=== PATIENT | male | born 1935 | race Caucasian/White ===

== ENCOUNTER 2016-07-21 07:10 | Day surgery (SDC) | payer MEDICARE, BC ==
--- NOTE | 2016-07-13 19:42 | HP ---
HISTORY AND PHYSICAL: DATE OF ADMISSION: 07/21/16 He will be in coming into [facility] on 07/21/16 for right knee arthroscopic surgery. CHIEF COMPLAINT: Right knee pain, giving away, and some walking. HISTORY OF PRESENT ILLNESS: This 80-year-old man has had problems with his knee over several months and it got worse recently with the above-noted symptoms and he has arthritis, but he also has signs and symptoms nonconsistent with meniscal tearing or cartilage tearing or lose body, so we recommended the arthroscopic surgery. PAST MEDICAL HISTORY: No history of heart attack. He has not had chest pain. He does stairs using a railing. No cancers. No bleeding tendencies. No prior abdominal surgery. MEDICATIONS: Daily meds include: 1. Lisinopril/hydrochlorothiazide 20/12.5 one a day. 2. Simvastatin 40 mg one a day. 3. Allopurinol 100 mg one a day. ALLERGIES: No allergies to drugs. PHYSICAL EXAMINATION GENERAL: A little overweight, well-nourished, well-developed, not acutely distressed. VITAL SIGNS: The patient is 72 inches in height and 232 pounds, blood pressure 122/72, pulse is 70, temp 96.8, respirations are 18, and pulse 56. HEENT: Head is NC/AT. LUNGS: Clear bilaterally. HEART: Regular. S1, S2 normal. No murmurs or gallops. ABDOMEN: Round, soft, nontender. There is no organomegaly. NEUROLOGIC: Cranial nerves are grossly intact. MUSCULOSKELETAL: He has a slight limp on the right. The right knee has an effusion with extension -2, flexion 95 degrees with pain, the right knee is tender on the medial joint line. MCL and LCL are stable. Barrie and posterior drawer are normal. The knee is nontender anterolaterally, posteriorly. The foot pulses are intact. NEUROLOGICAL: Cranial nerves are grossly intact. IMPRESSION: Right knee medial meniscal tear. PLAN: Right knee arthroscopic surgery. Goals, risks, and complications have been reviewed with him. Guarantees have not been made and his questions were answered. [id number]/CPS #: [id number] MTDD
[~2016-07-21 07:10] MED LIST: Buffered Lidocaine 1% SYR 3ML* 3 ML/SYR SYRINGE INTRADERM ONE
[2016-07-21] MEDS ORDERED: ceFAZolin 2 GM PREMIX (*) 2 GM/50 ML BAG IVPB ONE (07:52)
[2016-07-21] MEDS ORDERED: Bupivacaine 0.5% W/EPI SDV* 30 ML VIAL ONE (08:49)
[2016-07-21] MEDS ORDERED: Midazolam* 1 MG/ML 5 ML VIAL (5 MG) ONE (09:10)
[2016-07-21] MEDS ORDERED: fentaNYL* 50 MCG/ML 2 ML VIAL (100 MCG VIAL) ONE (09:15)
[2016-07-21] MEDS ORDERED: Propofol* 10 MG/ML 20 ML BTL IV PUSH ONE (09:15)
[2016-07-21] MEDS ORDERED: Dexamethasone IV* 4 MG/ML 1 ML (4 MG) ONE (09:40)
[2016-07-21] MEDS ORDERED: Ketorolac INJ* 30 MG/ML 1 ML VIAL ONE (09:40)
[2016-07-21] MEDS ORDERED: Ondansetron INJ* 2 MG/ML VIAL ONE (09:59)
[2016-07-21] MEDS ORDERED: methylPREDNISolone ACETATE 80* 80 MG/ML 1 ML VIAL ONE (10:06)
[2016-07-21] MEDS ORDERED: Ondansetron INJ* 2 MG/ML VIAL IV PRN (10:20)
[2016-07-21] MEDS ORDERED: oxyCODONE TAB* 5 MG TAB PO PRN (10:20)
[2016-07-21] MEDS ORDERED: HYDROcodone/ACETAMIN 5-325 MG* 1 TAB PO PRN (10:20)
[2016-07-21] MEDS ORDERED: fentaNYL* 50 MCG/ML 2 ML VIAL (100 MCG VIAL) IV PRN (10:20)
[2016-07-21] MEDS ORDERED: HYDROmorphone INJ* 1 MG/ML CARPUJECT SYRINGE IV PRN (10:20)
[2016-07-21] MEDS ORDERED: DiMENhydriNATE IV* 50 MG/ML VIAL IV PUSH PRN (10:20)
[2016-07-21 11:37] VITALS: BP 123/78
--- NOTE | 2016-07-21 23:49 | OP ---
DATE OF OPERATION: 07/21/16 - [facility] DATE OF : 39 SURGICAL CARE: Right knee. SURGEON: Wilfrido Aguiar MD STITCHING MACHINE OPERATOR: INES Rachel ANESTHESIOLOGIST: Albaro Manley MD ANESTHESIA: LMA, general. 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 POST-OP DIAGNOSIS: Right medial meniscal tear and medial arthritis. The medial meniscal tear was large and completely displaced and locking up the medial joint. OPERATIVE PROCEDURE: Right knee arthroscopic partial medial meniscectomy, chondroplasty of the lateral femoral condyle. COMPLICATIONS: There were no complications. DRAINS: There were no drains. TOURNIQUET: Tourniquet control was utilized on the right leg. BLOOD LOSS: 50 mL. REPLACEMENT: Crystalloid fluids. INDICATION: Severe medial knee pain with locking and marked limp and difficulty weightbearing, persistent. DESCRIPTION OF PROCEDURE: The patient was brought to the operating room and placed on the operating room table in a supine position. Following the administration of the anesthetic, the right proximal thigh was wrapped with a tourniquet and the right leg was prepped preliminarily at the knee with chlorhexidine and then given a formal prep from the tourniquet to the ankle with ChloraPrep. After prepping, draping and sealing off, we did our universal protocol time-out confirming Aaron Montero and a plan for right knee arthroscopic surgery. We all agreed and we proceeded. The right leg, ankle, and foot had also been completely draped in an impermeable drape with a Vi- Drape wrapped around the calf at the top of that for seal-off. After the protocol time-out was completed, the leg was exsanguinated, the tourniquet elevated to 275. The knee was readied for arthroscopy with the arthroscope lateral to patellar tendon. Probe and operating instruments medial to patellar tendon and an in-flow catheter superomedial to the patella. The cartilage of the patellofemoral joint was largely cobblestone and there was no large looser fragments. The medial and lateral gutters were clear except for minimal synovitis. The medial meniscus was torn nearly completely. The posterior part of it was flapped anteriorly, completely locking the medial joint. The lateral femoral condyle, lateral meniscus, lateral tibial plateau, a lot of wear and tear, the lateral femoral condyle had a flap that was 1.5 cm in size and loose and this was excised. I did not think any further surgical care was necessary in the lateral compartment. Once the torn medial meniscus was excised and the remaining medial meniscus was smooth mid and anteriorly, and posteriorly the rough edge was basketed. A tiny amount of chondroplasty was done on the medial femoral condyle as well for loose cartilage. Once the surgical care was complete, the final photograph was obtained. The tourniquet was deflated, the knee was irrigated with another 6 L of saline irrigation solution, then emptied, then instilled with Marcaine 0.5% with epinephrine 28 to 30 mL and 80 mg of Depo-Medrol. This was well tolerated. The knee arthroscopy site was closed with interrupted 3-0 Surgipro and a dressing was applied after washing and drying with Betadine soaked release , sterile gauze, sterile Webril, cryotherapy cuff, ABD pads and then a 6-inch Spenser bandage loosely applied. The patient was returned to the recovery room in stable and satisfactory condition having tolerated the procedure very well. [id number]/CPS #: [id number] AILYN
== END 2016-07-21 12:06 | disposition home or self-care (01) ==
LOC: OR 07:10
PROVIDERS: ATTEND Orthopaedic Surgery
DX: M23.231 Derangement of other medial meniscus due to old tear or injury, right knee (principal); M17.11 Unilateral primary osteoarthritis, right knee; M25.461 Effusion, right knee; I10 Essential (primary) hypertension
CPT/HCPCS: 88304; J0690; J1040; J1100; J1885; J2250; J2405; J2704; J3010

== ENCOUNTER → 2019-03-23 15:56 | Day surgery (SDC) | payer MEDICARE, OTHER, BC ==
[~2019-03-23 15:56] MED LIST changes: -Buffered Lidocaine 1% SYR 3ML* 3 ML/SYR SYRINGE INTRADERM ONE; +Buffered Lidocaine 1% SYRIN* 1 ML/SYRINGE INTRADERM ONE; +Bupivacaine 0.25% SDV PF* 10 ML VIAL INJ ONE; +Dexamethasone IV* 4 MG/ML 1 ML (4 MG) ONE; +Famotidine IV* 10 MG/ML 2 ML (20 mg) IV ONE; +Famotidine IV* 10 MG/ML 2 ML (20 mg) ONE; +KETAMINE HCL* 50 MG/ML 10 ML VIAL ONE; +Lactated Ringers 1000 ML Bag* 1,000 ML IV SCH; +Lidocaine 1% w EPI 1:100,000* MDV 20 ML VIAL ONE; +Lidocaine 2% PF * 5 ML VIAL ONE; +Midazolam* 1 MG/ML 10 ML VIAL (10 MG) ONE; +Naloxone* 0.4 MG/ML 1 ML VIAL IV PRN; +Ondansetron INJ* 2 MG/ML VIAL IV PRN; +Ondansetron INJ* 2 MG/ML VIAL ONE; +Propofol* 10 MG/ML 20 ML BTL ONE; +ceFAZolin 2 GM PREMIX in ORs 2 GM/50 ML BAG ONE; +fentaNYL* 50 MCG/ML 2 ML VIAL (100 MCG VIAL) IV PRN; +fentaNYL* 50 MCG/ML 2 ML VIAL (100 MCG VIAL) ONE; +oxyCODONE/Acetamin 5/325 MG* TAB PO PRN
[2019-03-23 20:27] VITALS: BP 117/80
== END | disposition home or self-care (01) ==
LOC: OR 15:56
PROVIDERS: ATTEND Plastic Surgery
DX: D03.62 Melanoma in situ of left upper limb, including shoulder (principal); I10 Essential (primary) hypertension; M19.90 Unspecified osteoarthritis, unspecified site; E78.5 Hyperlipidemia, unspecified; M10.9 Gout, unspecified; Z85.820 Personal history of malignant melanoma of skin
CPT/HCPCS: 88305; J0690; J1100; J2250; J2405; J2704; J3010; J3490

== ENCOUNTER 2023-09-22 09:07 | Inpatient (IN) ==
[2023-09-22 11:51] LABS: Hematocrit 28.2 % (38-53); Hemoglobin 10.1 g/dL (13.2-16.3); Mean Corpuscular Hemoglobin 40.2 pg (27-33); Mean Corpuscular Hgb Conc 35.9 g/dL (31-36); Mean Corpuscular Volume 112.3 fL (80-97); Red Blood Count 2.51 10^6/uL (4.06-5.63); Red Cell Distribution Width 13.1 % (12-17); White Blood Count 8.1 10^3/uL (3.6-10.2)
[2023-09-22 11:54] LABS: Activated Partial Thrombo Time 30.3 seconds (26.0-38.0); INR 1.16 (0.83-1.13)
[2023-09-22 12:27] LABS: Albumin 4.2 g/dL (3.2-5.2); Albumin/Globulin Ratio 2.3 (1-3); Calcium 8.5 mg/dL (8.6-10.3); Creatinine, Serum 9.12 mg/dL (0.67-1.17); Direct Bilirubin 0.1 mg/dL (0.03-0.18); Globulin 1.8 g/dL (2-4); Indirect Bilirubin 0.5 mg/dL (0.3-1.0); Total Bilirubin 0.6 mg/dL (0.2-1.0); eGFR CKD-EPI 5.2 (>60)
[2023-09-22] MEDS: NS 0.9% 1000 ml BAG 1,000 ML IV ONE (12:39)
[2023-09-22 12:40] LABS: Mean Platelet Volume 8.6 fL (7.5-11.2); Platelet Count 59 10^3/uL (150-450)
[2023-09-22 12:40] LABS: Urine Appearance Clear; Urine Bilirubin Negative (Negative); Urine Blood 1+ (Negative); Urine Color Light-Yellow; Urine Glucose Negative (Negative); Urine Ketones Negative (Negative); Urine Nitrite Negative (Negative); Urine Protein 1+ (>=30 mg/dL) (Negative); Urine Specific Gravity 1.014 (1.002-1.030); Urine Urobilinogen Negative (Negative); Urine pH 5.5 (5.0-8.0)
[2023-09-22 12:48] LABS: Urine Bacteria 1+ /HPF (Absent); Urine Red Blood Cell 1+(3-5/hpf) /HPF (0-Trace); Urine Squamous Epithelial Cell Present /HPF (Absent); Urine White Blood Cell 3+(>20/hpf) /HPF (0-Trace)
[2023-09-22 12:54] LABS: High Sensitivity Troponin 1 Hr 17 pg/mL (<20)
[2023-09-22 13:16] LABS: ABS Neutrophils 4.7 10^3/ul (1.5-7.6); Macrocytosis 1+
[2023-09-22 13:17] LABS: ABS Eosinophils 0.1 10^3/ul (0.0-0.5); ABS Lymphocytes 2.7 10^3/ul (1.0-4.8); ABS Monocytes 0.7 10^3/ul (0.0-1.1)
[2023-09-22] MEDS: cefTRIAXone 1 gm/50 mL D5W 1 GM/50 ML BAG IV ONE (13:52)
[2023-09-22 14:08] LABS: CRP High Sensitivity 1.36 mg/L (<2.00); Uric Acid 8.3 mg/dL (4.4-7.6)
[2023-09-22 15:24] LABS: Magnesium 1.4 mg/dL (1.9-2.7); Phosphorus 6.4 mg/dL (2.5-5.0)
[2023-09-22 15:45] LABS: Ferritin 997.9 ng/mL (24-336)
[2023-09-22 15:50] LABS: Folate 5.54 ng/mL (5.90-24.80)
[2023-09-22] MEDS: Magnesium Sulfate 2 gm BAG 2 GM/50 ML BAG IVPB ONE ×2 (16:35→23:11)
[2023-09-22 17:01] LABS: TSH Ultra Thyroid Stim Horm 1.01 mcIU/mL (0.34-5.60)
[2023-09-22] MEDS: NS 0.9% IV ONE (17:15)
[2023-09-22 17:22] LABS: C Reactive Protein 1.52 mg/L (<8.01)
[2023-09-22] MEDS ORDERED: NS 0.9% 1000 ml BAG 100 ML IV PRN (20:31)
[2023-09-22] MEDS ORDERED: Heparin 1,000 UNIT/ML 10 ml (10,000 UNITS) CATHLAB/DIALYSIS DIALYSIS PRN (20:31)
[2023-09-22] MEDS ORDERED: Albumin Human 25% 25 GM/100 ML BTL IV PRN (20:31)
[2023-09-22] MEDS ORDERED: NS 0.9% 1000 ml BAG 200 ML IV PRN (20:31)
[2023-09-22 21:49] LABS: Calcium 8.6 mg/dL (8.6-10.3); Creatinine, Serum 8.74 mg/dL (0.67-1.17); Potassium 5.2 mmol/L (3.5-5.0); eGFR CKD-EPI 5.5 (>60)
[2023-09-22] MEDS ORDERED: Ondansetron 4 mg VIAL 2 MG/ML 2 ml VIAL IV PRN (22:17)
[2023-09-22 22:38] LABS: Hepatitis B Surface Ab Not Immune (Immune)
[2023-09-22] MEDS: NS 0.9% 1000 ml BAG 2,000 ML IV ONE (23:04)
[2023-09-22] MEDS: NS 0.45% 1000 ml BAG 1,000 ML IV SCH (23:10)
[2023-09-23 06:38] LABS: Hematocrit 26.2 % (38-53); Hemoglobin 9.2 g/dL (13.2-16.3); Mean Corpuscular Hemoglobin 39.8 pg (27-33); Mean Corpuscular Hgb Conc 35.1 g/dL (31-36); Mean Corpuscular Volume 113.6 fL (80-97); Mean Platelet Volume 8.9 fL (7.5-11.2); Platelet Count 43 10^3/uL (150-450); Red Blood Count 2.31 10^6/uL (4.06-5.63); Red Cell Distribution Width 13.5 % (12-17); White Blood Count 8.1 10^3/uL (3.6-10.2)
[2023-09-23 06:54] LABS: Calcium 8.3 mg/dL (8.6-10.3); Creatinine, Serum 8.11 mg/dL (0.67-1.17); Magnesium 2.1 mg/dL (1.9-2.7); Potassium 4.7 mmol/L (3.5-5.0)
[2023-09-23 07:34] LABS: Macrocytosis 1+
[2023-09-23 10:54] LABS: Hepatitis B Surface Antigen Nonreactive (Nonreactive)
[2023-09-23 12:07] LABS: ABS Lymphocytes 2.8 10^3/ul (1.0-4.8); ABS Neutrophils 4.7 10^3/ul (1.5-7.6)
[2023-09-23 12:07] LABS: Activated Partial Thrombo Time 30.1 seconds (26.0-38.0); INR 1.11 (0.83-1.13)
[2023-09-23 12:08] LABS: ABS Eosinophils 0.2 10^3/ul (0.0-0.5); ABS Monocytes 0.4 10^3/ul (0.0-1.1)
[2023-09-23] MEDS: D5W IV SCH ×2 (12:44→13:10)
[2023-09-23] MEDS: 1/2 NS IV SCH ×2 (12:44→13:10)
[2023-09-23] MEDS: SODIUM BICARB IV SCH ×2 (12:44→13:10)
[2023-09-23] MEDS: cefTRIAXone 1 gm/50 mL D5W 1 GM/50 ML BAG IV SCH (14:35)
[2023-09-23] MEDS: Lidocaine 2% 10 ML VIAL INJ ONE (15:06)
[2023-09-23] MEDS: Lidocaine 2% PF 5 ML VIAL INJ ONE (15:06)
[2023-09-23 16:29] LABS: HIV 4th Generation Nonreactive (Nonreactive)
[2023-09-23 18:00] LABS: Corrected Retic Count 0.2 % (0.5-1.5); Hematocrit for Retic CNT 26.2 % (38-53); RBC Retic Count 2.32 10^6/ul (4.06-5.63)
[2023-09-23 19:23] LABS: Creatinine, Serum 7.49 mg/dL (0.67-1.17); Magnesium 1.8 mg/dL (1.9-2.7); Phosphorus 5.3 mg/dL (2.5-5.0); eGFR CKD-EPI 6.6 (>60)
[2023-09-23 20:33] LABS: Hematocrit 24.9 % (38-53); Hemoglobin 8.8 g/dL (13.2-16.3); Mean Corpuscular Hemoglobin 39.8 pg (27-33); Mean Corpuscular Hgb Conc 35.6 g/dL (31-36); Mean Platelet Volume 7.9 fL (7.5-11.2); Platelet Count 55 10^3/uL (150-450); RBC Morphology Normal (Normal); Red Blood Count 2.22 10^6/uL (4.06-5.63); Red Cell Distribution Width 13.4 % (12-17); White Blood Count 6.6 10^3/uL (3.6-10.2)
[2023-09-23] MEDS: Sodium Bicarb 8.4% Vial 50 ML 150 MEQ in D5W 1000 ml BAG 850 ML IV ONE (21:46)
[2023-09-24 06:22] LABS: Hematocrit 24.2 % (38-53); Hemoglobin 8.7 g/dL (13.2-16.3); Mean Corpuscular Hemoglobin 39.7 pg (27-33); Mean Corpuscular Hgb Conc 35.9 g/dL (31-36); Mean Corpuscular Volume 110.7 fL (80-97); Red Blood Count 2.18 10^6/uL (4.06-5.63); Red Cell Distribution Width 13.1 % (12-17); White Blood Count 7.6 10^3/uL (3.6-10.2)
[2023-09-24 06:42] LABS: Calcium 8.1 mg/dL (8.6-10.3); Creatinine, Serum 7.16 mg/dL (0.67-1.17); Magnesium 1.7 mg/dL (1.9-2.7); Phosphorus 5.1 mg/dL (2.5-5.0); Potassium 3.9 mmol/L (3.5-5.0); eGFR CKD-EPI 6.9 (>60)
[2023-09-24 08:17] LABS: ABS Basophils 0.1 10^3/uL (0.0-0.1); ABS Eosinophils 0.1 10^3/uL (0.0-0.5); ABS Lymphocytes 1.7 10^3/uL (1.0-4.8); ABS Monocytes 1.1 10^3/uL (0.0-1.1); ABS Neutrophils 4.6 10^3/uL (1.5-7.6); Eosinophil % 0.8 %; Lymphocyte % 22.3 %; Macrocytosis 1+; Mean Platelet Volume 8.2 fL (7.5-11.2); Platelet Count 54 10^3/uL (150-450)
[2023-09-24] MEDS: Magnesium Sulfate IV 1GM/100ML 1 GM/100 ML BAG IV ONE (08:21)
[2023-09-24] MEDS: Magnesium Sulfate 2 gm BAG 2 GM/50 ML BAG IVPB ONE (09:58)
[2023-09-24] MEDS: Potassium Chlor 20 meq TAB.ER PO ONE (11:32)
[2023-09-24 12:43] LABS: Direct Bilirubin 0.2 mg/dL (0.03-0.18); Indirect Bilirubin 0.4 mg/dL (0.3-1.0); Total Bilirubin 0.6 mg/dL (0.2-1.0)
[2023-09-24] MEDS: 1/2 NS IV SCH ×3 (13:07→14:15)
[2023-09-24] MEDS: D5W IV SCH ×3 (13:07→14:15)
[2023-09-24] MEDS: SODIUM BICARB IV SCH ×3 (13:07→14:15)
[2023-09-24] MEDS ORDERED: Sulfur Hexaflouride MICROSPHR 25 MG VIAL ONE (13:19)
[2023-09-24 20:40] LABS: ADAMTS13 Activity Assay 75 % (>/=70)
[2023-09-24 21:24] LABS: Calcium 8.5 mg/dL (8.6-10.3); Creatinine, Serum 6.85 mg/dL (0.67-1.17); eGFR CKD-EPI 7.3 (>60)
[2023-09-25] MEDS: Sodium Bicarb 8.4% Vial 50 ML 75 MEQ in NS 0.45% 1000 ml BAG 1,000 ML IV SCH (04:08)
[2023-09-25 06:57] LABS: Hematocrit 25.9 % (38-53); Hemoglobin 9.2 g/dL (13.2-16.3); Mean Corpuscular Hemoglobin 39.8 pg (27-33); Mean Corpuscular Hgb Conc 35.6 g/dL (31-36); Mean Corpuscular Volume 111.9 fL (80-97); Mean Platelet Volume 8.6 fL (7.5-11.2); Platelet Count 63 10^3/uL (150-450); Red Blood Count 2.31 10^6/uL (4.06-5.63); Red Cell Distribution Width 13.3 % (12-17); White Blood Count 9.2 10^3/uL (3.6-10.2)
[2023-09-25 07:12] LABS: Calcium 8.5 mg/dL (8.6-10.3); Creatinine, Serum 6.5 mg/dL (0.67-1.17); Phosphorus 4.9 mg/dL (2.5-5.0); eGFR CKD-EPI 7.8 (>60)
[2023-09-25 10:28] LABS: ABS Basophils 0.1 10^3/uL (0.0-0.1); ABS Eosinophils 0.1 10^3/uL (0.0-0.5); ABS Lymphocytes 2.3 10^3/uL (1.0-4.8); ABS Monocytes 1.1 10^3/uL (0.0-1.1); ABS Neutrophils 5.7 10^3/uL (1.5-7.6); ABS Nucleated RBC 0.01 10^3/ul; Eosinophil % 0.8 %; Lymphocyte % 24.8 %; Nucleated Red Blood Cells % 0.1 %/100WBC (0.0-0.8)
[2023-09-25 10:29] LABS: Macrocytosis 2+
[2023-09-26 06:40] LABS: Calcium 8.8 mg/dL (8.6-10.3); Creatinine, Serum 6.02 mg/dL (0.67-1.17); Magnesium 1.8 mg/dL (1.9-2.7); Potassium 4.1 mmol/L (3.5-5.0); eGFR CKD-EPI 8.6 (>60)
[2023-09-26 07:05] LABS: Hematocrit 24.3 % (38-53); Hemoglobin 8.7 g/dL (13.2-16.3); Mean Corpuscular Hemoglobin 39.9 pg (27-33); Mean Corpuscular Hgb Conc 35.8 g/dL (31-36); Mean Corpuscular Volume 111.6 fL (80-97); Platelet Count 61 10^3/uL (150-450); Red Blood Count 2.18 10^6/uL (4.06-5.63); Red Cell Distribution Width 13.2 % (12-17)
[2023-09-26] MEDS: Magnesium Sulfate IV 1GM/100ML 1 GM/100 ML BAG IV ONE (08:50)
[2023-09-26] MEDS: NS 0.9% 1000 ml BAG 1,000 ML IV SCH (10:11)
[2023-09-26] MEDS: Dexamethasone IV 40 MG in NS 0.9% 50 ML 50 ML IVPB SCH (14:05)
[2023-09-26 14:25] LABS: Rheumatoid Factor < 10 IU/mL (<15)
[2023-09-26 15:07] LABS: Hepatitis B Surface Antigen Nonreactive (Nonreactive)
[2023-09-26 15:18] LABS: Anaplasma phagocytophilum Negative (Negative); B. miyamotoi PCR, B Negative (Negative); Babesia divergens/MO-1 Negative (Negative); Babesia ducani Negative (Negative); Ehrlichia chaffeensis Negative (Negative); Ehrlichia ewingii/canis Negative (Negative); Ehrlichia muris eauclairensis Negative (Negative)
[2023-09-26 15:24] LABS: Hepatitis B Surface Ab Not Immune (Immune); Hepatitis C Antibody Negative (Negative)
[2023-09-27] MEDS: NS 0.9% 1000 ml BAG 1,000 ML IV SCH ×2 (01:50→09:55)
[2023-09-27 06:25] LABS: ABS Lymphocytes 1.5 10^3/uL (1.0-4.8); ABS Monocytes 0.3 10^3/uL (0.0-1.1); ABS Neutrophils 5.5 10^3/uL (1.5-7.6); Eosinophil % 0.2 %; Hematocrit 24.4 % (38-53); Hemoglobin 8.7 g/dL (13.2-16.3); Lymphocyte % 20.6 %; Mean Corpuscular Hemoglobin 39.9 pg (27-33); Mean Corpuscular Hgb Conc 35.6 g/dL (31-36); Nucleated Red Blood Cells % 0.1 %/100WBC (0.0-0.8); Platelet Count 59 10^3/uL (150-450); Red Blood Count 2.17 10^6/uL (4.06-5.63); Red Cell Distribution Width 13.2 % (12-17); White Blood Count 7.3 10^3/uL (3.6-10.2)
[2023-09-27 06:49] LABS: Calcium 8.8 mg/dL (8.6-10.3); Creatinine, Serum 5.66 mg/dL (0.67-1.17); Magnesium 1.9 mg/dL (1.9-2.7); Potassium 4.4 mmol/L (3.5-5.0); eGFR CKD-EPI 9.2 (>60)
[2023-09-27] MEDS ORDERED: Dextrose 50% Syringe 50 ml 25 GM/50 ML SYRINGE IV PUSH PRN (07:04)
[2023-09-27] MEDS: Magnesium Sulfate IV 1GM/100ML 1 GM/100 ML BAG IV ONE (08:47)
[2023-09-27 11:19] LABS: HDL Cholesterol 24.7 mg/dL
[2023-09-27 15:56] LABS: Flag, M-protein Isotype Positive (Negative); Immunoglobulin A (IgA), S 17 mg/dL (61 - 356); Immunoglobulin G (IgG), S 383 mg/dL (767 - 1590); Immunoglobulin M (IgM), S 7 mg/dL (37 - 286)
[2023-09-27] MEDS ORDERED: NS 0.9% IVPB SCH (17:00)
[2023-09-27] MEDS ORDERED: ACYCLOVIR IVPB SCH (17:00)
[2023-09-28 06:23] LABS: ABS Lymphocytes 1.1 10^3/uL (1.0-4.8); ABS Monocytes 0.8 10^3/uL (0.0-1.1); ABS Neutrophils 9.9 10^3/uL (1.5-7.6); Hematocrit 24.1 % (38-53); Hemoglobin 8.4 g/dL (13.2-16.3); Lymphocyte % 9.1 %; Mean Corpuscular Hemoglobin 39.1 pg (27-33); Mean Corpuscular Volume 111.8 fL (80-97); Mean Platelet Volume 8.3 fL (7.5-11.2); Platelet Count 65 10^3/uL (150-450); Red Blood Count 2.15 10^6/uL (4.06-5.63); Red Cell Distribution Width 13.4 % (12-17); White Blood Count 11.7 10^3/uL (3.6-10.2)
[2023-09-28 09:32] LABS: Calcium 8.3 mg/dL (8.6-10.3); Creatinine, Serum 5.03 mg/dL (0.67-1.17); Magnesium 1.9 mg/dL (1.9-2.7); Potassium 4.3 mmol/L (3.5-5.0); eGFR CKD-EPI 10.6 (>60)
[2023-09-28 12:02] LABS: AMLAF Result Summary Abnormal
[2023-09-28 13:04] LABS: Urine Appearance No Cx Clear (Clear); Urine Bilirubin No Culture Negative (Negative); Urine Blood No Culture Trace (Negative); Urine Color No Culture Colorless; Urine Glucose No Culture Trace (Negative); Urine Ketones No Culture Negative (Negative); Urine Leukocytes No Culture Negative Leu/uL (Negative); Urine Nitrite No Culture Negative (Negative); Urine Protein No Culture Trace (Negative); Urine Specific Gravity No Cx 1.012 (1.002-1.030); Urine Urobilinogen No Cx Negative (Negative); Urine pH No Culture 5.5 (5.0-8.0)
[2023-09-28 13:16] LABS: Urine Bacteria No Culture Absent /HPF (Absent); Urine Red Blood Cell No Cult Trace(0-2/hpf) /HPF (0-Trace); Urine White Blood Cell No Cult Trace(0-5/hpf) /HPF (0-Trace)
[2023-09-28] MEDS: PALONOSETRON HCL 0.05 MG/ML (0.25 MG) SYRINGE (0.05 MG/ML) IV ONE (13:20)
[2023-09-28] MEDS: CYCLOPHOSPHAMIDE IVPB ONE (13:22)
[2023-09-28] MEDS: BORTEZOMIB IVPB ONE (13:22)
[2023-09-28] MEDS: NS 0.9% IVPB ONE (13:22)
[2023-09-28] MEDS: D5W IV SCH ×2 (14:21→15:30)
[2023-09-28] MEDS: SODIUM BICARB IV SCH ×2 (14:21→15:30)
[2023-09-28] MEDS: 1/2 NS IV SCH ×2 (14:21→15:30)
[2023-09-28 16:33] LABS: Complement C3 87 mg/dL (75 - 175)
[2023-09-28 17:48] LABS: Flag, M-protein Isotype Positive (Negative); Immunoglobulin A (IgA), S 15 mg/dL (61 - 356); Immunoglobulin G (IgG), S 343 mg/dL (767 - 1590); Immunoglobulin M (IgM), S 6 mg/dL (37 - 286); M-protein GK <0.010 g/dL
[2023-09-28 19:18] LABS: Calcium 7.5 mg/dL (8.6-10.3); Creatinine, Serum 4.41 mg/dL (0.67-1.17); Potassium 4.2 mmol/L (3.5-5.0); eGFR CKD-EPI 12.4 (>60)
[2023-09-28 20:16] LABS: Kappa Free Light Chain 702 mg/dL
[2023-09-29 07:40] LABS: Calcium 8.1 mg/dL (8.6-10.3); Creatinine, Serum 4.54 mg/dL (0.67-1.17); Magnesium 1.7 mg/dL (1.9-2.7); Potassium 4.2 mmol/L (3.5-5.0)
[2023-09-29 08:08] LABS: ABS Lymphocytes 0.8 10^3/uL (1.0-4.8); ABS Monocytes 0.8 10^3/uL (0.0-1.1); ABS Neutrophils 8.8 10^3/uL (1.5-7.6); ABS Nucleated RBC 0.01 10^3/ul; Eosinophil % 0.1 %; Hematocrit 23.1 % (38-53); Lymphocyte % 8.1 %; Mean Corpuscular Hemoglobin 39.3 pg (27-33); Mean Corpuscular Hgb Conc 34.6 g/dL (31-36); Mean Corpuscular Volume 113.5 fL (80-97); Mean Platelet Volume 8.3 fL (7.5-11.2); Platelet Count 74 10^3/uL (150-450); Red Blood Count 2.04 10^6/uL (4.06-5.63); Red Cell Distribution Width 13.3 % (12-17); White Blood Count 10.5 10^3/uL (3.6-10.2)
[2023-09-29] MEDS ORDERED: NS 0.9% 1000 ml BAG 1,000 ML IV SCH (08:45)
[2023-09-29] MEDS: Magnesium Sulfate 2 gm BAG 2 GM/50 ML BAG IVPB ONE (10:19)
[2023-09-29] MEDS: Lactated Ringers 1000 ml BAG 1,000 ML IV SCH (11:20)
[2023-09-29 14:49] LABS: C-ANCA Negative (Negative); P-ANCA Negative (Negative)
[2023-09-29 16:00] LABS: PLA2R, Immunofluorescence, S Negative (Negative)
[2023-09-29 16:54] VITALS: BP 119/64
[2023-09-29 18:55] LABS: Flag, M-protein Isotype Positive (Negative); Immunoglobulin A (IgA), S 15 mg/dL (61 - 356); Immunoglobulin G (IgG), S 360 mg/dL (767 - 1590); Immunoglobulin M (IgM), S 6 mg/dL (37 - 286); M-protein GK <0.010 g/dL
[2023-10-01 11:57] LABS: Helicobacter pylori Result Not Detected; Specimen Source STOOL
[2023-10-08 15:15] LABS: BM Result Summary Abnormal
== END 2023-09-29 17:20 | disposition home or self-care (01) | DRG 841 ==
LOC: ED 09:07 → EDHOLD 09:07 → SUATTDRO 15:00 → MED 18:05 → SUATTDRO 09-23 09:23 → MED 09-28 11:30
PROVIDERS: ADMIT Student in an Organized Health Care Education/Training Program; ATTEND Hospitalist